=== PATIENT | male | born 1950 | race Caucasian/White ===

== ENCOUNTER 2016-11-09 17:24 | Emergency (ER) | payer BC ==
[2016-11-09 17:31] VITALS: BP 131/87
--- NOTE | 2016-11-09 17:58 | UC ---
Skin Complaint HPI - HPI Summary HPI Summary: tick exposure removed last night attached 24-36 hours--he took it [place] and It was identified as a deer tick - History of Current Complaint Hx Obtained From: Patient Onset/Duration: Sudden Onset, Lasting Days - 2, Still Present Skin Exposure Onset/Duration: Days Ago - 2 Timing: Constant Onset Severity: Mild Current Severity: Mild Pain Intensity: 0 Pain Scale Used: 0-10 Numeric Location: Discrete - posterior right leg Aggravating: Nothing Alleviating: Nothing Associated Signs & Symptoms: Positive: Negative Related History: Possible Reaction to: Insect <Kyleigh Britt - Last Filed: 11/09/16 18:22> <Sujata York - Last Filed: 11/10/16 09:45> - History of Current Complaint Chief Complaint: [facility] Time Seen by Provider: 11/09/16 17:46 Stated Complaint: TICK BITE - Allergy/Home Medications Allergies/Adverse Reactions: Allergies Allergy/AdvReac Type Severity Reaction Status Date / Time No Known Allergies Allergy Verified 04/02/13 19:34 Review of Systems Constitutional: Negative Skin: Negative Eyes: Negative ENT: Negative Respiratory: Negative Cardiovascular: Negative Gastrointestinal: Negative Genitourinary: Negative Motor: Negative Neurovascular: Negative Musculoskeletal: Negative Neurological: Negative Psychological: Negative All Other Systems Reviewed And Are Negative: Yes <Kyleigh Britt - Last Filed: 11/09/16 18:22> PMH/Surg Hx/FS Hx/Imm Hx Previously Healthy: Yes Cardiovascular History: Hypertension - Surgical History Surgical History: Yes Surgery Procedure, Year, and Place: PILONYDIAL CYST. VASECTOMY. Hernia Repair last year - Family History Known Family History: Positive: None - Social History Occupation: Employed Full-time Lives: With Family Alcohol Use: None Substance Use Type: None Smoking Status (MU): Never Smoked Tobacco - Immunization History Most Recent Tetanus Shot: unk <Kyleigh Britt - Last Filed: 11/09/16 18:22> Physical Exam Triage Information Reviewed: Yes Appearance: Well-Appearing, No Pain Distress, Well-Nourished Vital Signs: Initial Vital Signs Temp 98.3 F 11/09/16 17:26 Pulse 66 11/09/16 17:26 Resp 18 11/09/16 17:26 BP 131/87 11/09/16 17:26 Pulse Ox 97 11/09/16 17:26 Vital Signs Reviewed: Yes Eye Exam: Normal Eyes: Positive: Conjunctiva Clear ENT Exam: Normal ENT: Positive: Normal ENT inspection, Hearing grossly normal. Negative: Nasal congestion, Nasal drainage, Trismus, Muffled/hoarse voice Dental Exam: Normal Neck exam: Normal Neck: Positive: Supple, Nontender Respiratory Exam: Normal Respiratory: Positive: Chest non-tender, No respiratory distress, No accessory muscle use Cardiovascular Exam: Normal Cardiovascular: Positive: RRR, No Murmur, Pulses Normal, Brisk Capillary Refill Musculoskeletal Exam: Normal Musculoskeletal: Positive: Strength Intact, ROM Intact, No Edema Neurological Exam: Normal Neurological: Positive: Alert, Muscle Tone Normal Psychological Exam: Normal Skin Exam: Normal <Kyleigh Britt - Last Filed: 11/09/16 18:22> Vital Signs: Initial Vital Signs Temp 98.3 F 11/09/16 17:26 Pulse 66 11/09/16 17:26 Resp 18 11/09/16 17:26 BP 131/87 11/09/16 17:26 Pulse Ox 97 11/09/16 17:26 <Sujata York - Last Filed: 11/10/16 09:45> Course/Dx - Course Course Of Treatment: doxycycline 200mg times 1 dose now, follow with Dr. Carrillo prn observe for s/s of Lyme disease - Differential Diagnoses - Skin Complaint Differential Diagnoses: Abscess, Impetigo, Systemic Illness, Tick Born Illness - Diagnoses Provider Diagnoses: Tick exposure with Lyme PEP <Kyleigh Britt - Last Filed: 11/09/16 18:22> Discharge <Kyleigh Britt - Last Filed: 11/09/16 18:22> <Sujata York - Last Filed: 11/10/16 09:45> - Discharge Plan Condition: Stable Disposition: HOME Prescriptions: DOXYcycline CAP(*) [DOXYcycline 100MG CAP(*)] 100 mg PO DAILY #4 cap Patient Education Materials: Tick Bite (ED), Doxycycline (By mouth) Referrals: Russell Saul MD [Primary Care Provider] - If Needed
== END 2016-11-09 18:10 | disposition home or self-care (01) ==
LOC: UCEAST 17:24
DX: S80.861A Insect bite (nonvenomous), right lower leg, initial encounter (principal); W57.XXXA Bitten or stung by nonvenomous insect and other nonvenomous arthropods, initial encounter; Y93.9 Activity, unspecified; Y92.9 Unspecified place or not applicable; Y99.9 Unspecified external cause status
CPT/HCPCS: 99212; G0463

== ENCOUNTER 2019-07-16 14:21 | Emergency (ER) | payer MEDICARE ==
--- NOTE | 2019-07-16 15:04 | ED ---
HPI Chest Pain - HPI Summary HPI Summary: Patient is a 68 y/o male p/w episode of chest pain that began the morning of . The chest pain is described as "like an upper respiratory cold." Patient denies pressure, dyspnea on exertion, or exertional chest pain. He has been exercising. A/w cold sweats. He also notes an intermittent dry cough for the last 3 weeks. Patient denies fever. No aggravating or alleviating factors are reported. PMHx is significant for HTN but he denies a history of [place]. FMHx is significant for cardiac problems. 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 He denies exposure to COVID-19 positive people. He denies recent travel. - History of Current Complaint Chief Complaint: EDChestPainROMI Time Seen by Provider: 07/16/19 15:02 Hx Obtained From: Patient Onset/Duration: Started Hours Ago, Atraumatic, Resolved Timing: Constant Initial Severity: Moderate Current Severity: None Pain Intensity: 0 Pain Scale Used: 0-10 Numeric Chest Pain Location: Diffuse Chest Pain Radiates: No Character: Other: Aggravating Factor(s): Nothing Alleviating Factor(s): Nothing Associated Signs and Symptoms: Positive: Chest Pain, Diaphoresis, Cough - Dry, Nonproductive Cough. Negative: Fever - Allergy/Home Medications Allergies/Adverse Reactions: Allergies Allergy/AdvReac Type Severity Reaction Status Date / Time No Known Allergies Allergy Verified 04/02/13 19:34 Home Medications: Home Medications Losartan TAB* [Cozaar TAB*] 50 mg PO DAILY 07/16/19 [History Confirmed 07/16/19] PMH/Surg Hx/FS Hx/Imm Hx Previously Healthy: Yes Cardiovascular History: Reports: Hx Hypercholesterolemia, Hx Hypertension - ON MEDICATION FOR Denies: Hx Myocardial Infarction Respiratory History: Denies: Hx Chronic Obstructive Pulmonary Disease (COPD) Musculoskeletal History: Reports: Hx Arthritis - HANDS Sensory History: Reports: Hx Contacts or Glasses - GLASSES Denies: Hx Legally Blind, Hx Deafness Opthamlomology History: Reports: Hx Contacts or Glasses - GLASSES Denies: Hx Legally Blind EENT History: Denies: Hx Deafness Neurological History: Reports: Hx Migraine - occular MIGRAINES- 3 X PER WEEK- TREATS WITH ADVIL - Surgical History Surgical History: Yes Surgery Procedure, Year, and Place: PILONYDIAL CYST. VASECTOMY. Hernia Repair last year Hx Anesthesia Reactions: No Infectious Disease History: No Infectious Disease History: Denies: Traveled Outside the [place] in Last 30 Days - Family History Known Family History: Positive: Cardiac Disease - Social History Occupation: Employed Full-time Lives: With Family Alcohol Use: None Hx Substance Use: No Substance Use Type: Reports: None Hx Tobacco Use: No Smoking Status (MU): Never Smoked Tobacco Review of Systems Positive: Skin Diaphoresis. Negative: Fever Positive: Chest Pain Negative: Shortness Of Breath All Other Systems Reviewed And Are Negative: Yes Physical Exam - Summary Physical Exam Summary: Constitutional: Well-developed, Well-nourished, Alert. (-) Distressed Skin: Warm, Dry HENT: Normocephalic; Atraumatic Eyes: Conjunctiva normal Neck: Musculoskeletal ROM normal neck. (-) JVD, (-) Stridor, (-) Nuchal rigidity Cardio: Rhythm regular, rate normal, Heart sounds normal; Intact distal pulses; Radial pulses are 2+ and symmetric. (-) Murmur Pulmonary/Chest wall: Effort normal. (-) Respiratory distress, (-) Wheezes, (-) Rales Abd: Soft, (-) tenderness, (-) Distension, (-) Guarding, (-) Rebound Musculoskeletal: (-) Edema Lymph: (-) Cervical adenopathy Neuro: Alert, Oriented x3 Psych: Mood and affect Normal Triage Information Reviewed: Yes Vital Signs On Initial Exam: Initial Vitals Temp Pulse Resp BP Pulse Ox 98.8 F 71 18 151/89 95 07/16/19 14:55 07/16/19 14:55 07/16/19 14:55 07/16/19 14:55 07/16/19 14:55 Vital Signs Reviewed: Yes Procedures - Sedation Patient Received Moderate/Deep Sedation with Procedure: No Diagnostics - Vital Signs Vital Signs Temp Pulse Resp BP Pulse Ox 07/16/19 14:55 98.8 F 71 18 151/89 95 - Laboratory Result Diagrams: 07/16/19 15:10 07/16/19 15:10 Lab Statement: Any lab studies that have been ordered have been reviewed, and results considered in the medical decision making process. - EKG 16:04 Cardiac Rate: NL - 66 BPM EKG Rhythm: Sinus Rhythm ST Segment: Normal Ectopy: None Summary of EKG Findings: An EKG at 16:04 reveals normal sinus rhythm with 66 BPM , T wave inversion in lead III, nml axis, nml intervals. No STEMI. No acute changes. No prior EKG is available for comparison. ED physician has reviewed and interpreted this EKG. Chest Pain Course/Dx - Course Course Of Treatment: 68 y/o male. Patient presenting with URI symptoms. Patient well appearing, with stable vitals. Patient does not have increased work of breathing, productive cough to suggest pneumonia. Suspect episode of CP related to URI, troponin negative, EKG w TWI III. Do not suspect ACS. Heart score 3, low risk. No headache, neck pain or nuchal rigidity. Tolerating by mouth. Tested for COVID. Patient given strict instructions on quarantine, follow-up with department of health, and return precautions. Plan for discharge w symptomatic control and will return for worsening symptoms. - Diagnoses Provider Diagnoses: URI (upper respiratory infection), Chest pain Discharge ED - Sign-Out/Discharge Documenting (check all that apply): Patient Departure - Discharge - Discharge Plan Condition: Stable Disposition: HOME Patient Education Materials: Chest Pain (ED), Upper Respiratory Infection (ED) Forms: COVID-19 Tested & Isolation Referrals: Priyank Adkins MD [Primary Care Provider] - Additional Instructions: You were seen in the emergency department for chest pain and upper respiratory symptoms. Please see the handout regarding bhardwaj virus testing. When you are feeling improved, please follow up with your doctor regarding possible stress testing of your heart. Please follow up with your primary care doctor in next 2-3 days and return to emergency department for chest pain, shortness breath, worsening or concerning symptoms. It was a pleasure taking care of you today. - Billing Disposition and Condition Condition: STABLE Disposition: Home - Attestation Statements Document Initiated by Scribe: Yes Documenting Scribe: Rupinder Pandey Provider For Whom Irasema is Documenting (Include Credential): Edna Gomes MD Scribe Attestation: Rupinder Hassan, scribed for Edna Gomes MD on 07/16/19 at 1651. Scribe Documentation Reviewed: Yes Provider Attestation: The documentation as recorded by the Rupinder puga accurately reflects the service I personally performed and the decisions made by me, Edna Gomes MD Status of Scribe Document: Viewed
[2019-07-16 16:07] LABS: ABS Basophils 0.1 10^3/ul (0-0.2); ABS Lymphocytes 1.7 10^3/ul (1.0-4.8); ABS Monocytes 0.6 10^3/ul (0-0.8); ABS Neutrophils 4.2 10^3/ul (1.5-7.7); Eosinophil % 0.7 %; Hematocrit 46 % (42-52); Hemoglobin 16.6 g/dL (14.0-18.0); Lymphocyte % 26.1 %; Mean Corpuscular HGB Conc 36 g/dL (31-36); Mean Corpuscular Hemoglobin 32 pg (27-31); Mean Corpuscular Volume 89 fL (80-94); Mean Platelet Volume 8.2 fL (7.4-10.4); Nucleated Red Blood Cells % 0.1; Platelet Count 214 10^3/uL (150-450); Red Blood Count 5.19 10^6 /uL (4.18-5.48); Red Cell Distribution Width 14 % (10-15); White Blood Count 6.7 10^3/uL (3.5-10.8)
--- OUTSIDE RECORDS SUMMARY | 2019-07-16 16:19 | XMS REPORT | Continuity of Care Document ---
:1950 External Reference #:[id number] Author Name Nanci Lanza NP Address [address] [place] [address] Problems Description No Information Available Social History Type Date Description Comments Sex Unknown Tobacco Use Start: Unknown Nonsmoker ETOH Use Denies alcohol use Recreational Drug Use Denies Drug Use Exercise Type/Frequency Exercises regularly Seat Belt/Car Seat Always uses seat belt Allergies, Adverse Reactions, Alerts Description No Known Drug Allergies Medications Active Medications SIG Qnty Indications Ordering Provider Date Losartan Potassium 1 by mouth every Unknown 50mg day Tablets Immunizations Description No Information Available Vital Signs Date Vital Result Comment 05/24/2019 8:01am BP Systolic 140 mmHg BP Diastolic 100 mmHg Heart Rate 68 /min Body Temperature 98.0 F Respiratory Rate 16 /min Height 68.5 inches 5'8.50" Weight 214.00 lb BMI (Body Mass Index) 32.1 kg/m2 Right Visual Acuity Distance 20/20 Corrected Left Visual Acuity Distance 20/20 06/05/2018 1:04pm BP Systolic 138 mmHg BP Diastolic 78 mmHg Heart Rate 78 /min Body Temperature 97.2 F Respiratory Rate 20 /min Height 69.5 inches 5'9.50" Weight 208.00 lb BMI (Body Mass Index) 30.3 kg/m2 Right Visual Acuity Distance 20/15 Left Visual Acuity Distance 20/15 Results Description No Information Available Procedures Date Code Description Status 04/25/2016 02875145 Colonoscopy Completed Medical Devices Description No Information Available Encounters Description No Information Available Assessments Date Code Description Provider 05/24/2019 Z02.4 Encounter for examination for driving license Nanic Lanza NP 05/24/2019 I10 Essential (primary) hypertension Nanci Lanza NP Plan of Treatment 05/24/2019 - Nanci Lanza NPZ02.4 Encounter for examination for driving licenseNew Labs:Ua - Non Micro (Fma), Ordered: 05/24/19I10 Essential (primary) hypertensionComments:Call or return to the office if:* you get more than one blood pressure reading above 160/100 (even if only one of the numbers is high)* you feel close to passing out or actually pass out* you have new or worsening swelling in the ankles, legs, hands, or face* you develop palpiatations or funny heartbeatsAllComments:1. Patient has been queried about patient's goals/ preferences and functional/lifestyle goals at relevant visits. If relevant, describe: Has been discussed, noted above2. Treatment goals as explainedto the patient: see above3. Are there barriers to meeting treatment goals? Yes If Yes, please describe: Barriers include possible insurance limits, disease process, and difficulty with lifestyle changes4. Self-Management goals as described to the patient: Yes, see above As always, we strongly encourage a healthy diet and making physical activity a part of your every day life. If you have questions about how or where to start, please contact the office. Functional Status Description No Information Available Mental Status Description No Information Available Referrals Description No Information Available
[2019-07-16 16:23] LABS: Albumin 4.8 g/dL (3.2-5.2); Albumin/Globulin Ratio 1.5 (1-3); Calcium 10.1 mg/dL (8.6-10.3); EGFR African American 83.8 (>60); EGFR Non-African American 69.3 (>60); Globulin 3.3 g/dL (2-4); Total Bilirubin 0.6 mg/dL (0.2-1.0); Total Protein 8.1 g/dL (6.4-8.9)
[2019-07-16 16:46] LABS: Potassium 4.2 mmol/L (3.5-5.0)
[2019-07-16 16:55] VITALS: BP 131/77
== END 2019-07-16 16:55 | disposition home or self-care (01) ==
LOC: ED 14:21
DX: J06.9 Acute upper respiratory infection, unspecified (principal); I10 Essential (primary) hypertension; E78.00 Pure hypercholesterolemia, unspecified; Z79.899 Other long term (current) drug therapy
CPT/HCPCS: 36415; 80053; 84484; 85025; 93005; 99283; U0002